=== PATIENT | female | born 1980 | race Hispanic/Latino ===

== ENCOUNTER 2021-12-17 14:16 | Emergency (ER) | payer OTHER, SELFPAY ==
--- NOTE | 2021-12-17 14:54 | ED.HA ---
HPI - Headache General Chief Complaint: Headache Stated Complaint: headache Time Seen by Provider: 12/17/21 14:29 History of Present Illness HPI Narrative: 41-year-old female presents to the emergency room for evaluation of a headache and sinus congestion. Patient states symptoms started yesterday. Took an Tylenol yesterday with no relief of symptoms. Patient states that her had similar symptoms a couple of days ago and are beginning to resolve. Patient denies fever, earache, sore throat, cough. Related Data Allergies Allergy/AdvReac Type Severity Reaction Status Date / Time No Known Allergies Allergy Verified 12/17/21 15:12 Review of Systems Review of Systems: CONSTITUTIONAL: Denies fever, chills, or sweats. EYES: Denies visual changes, redness, or discharge. ENT: Denies rhinorrhea, congestion, sore throat, or otalgia. CARDIOVASCULAR: Denies chest pain, palpitations, or edema. RESPIRATORY: Denies cough or dyspnea. GASTROINTESTINAL: Denies abdominal pain, nausea, vomiting, or diarrhea. GENITOURINARY: Denies dysuria or hematuria. SKIN: Denies rash or itching. MUSCULOSKELETAL: Denies back pain, joint pain, or myalgia. NEUROLOGIC: Reports headache PSYCHIATRIC: Denies anxiety or depression. Exam Narrative: GENERAL: Well-appearing, well-nourished, no physical limitations, and in no acute distress. HEAD: Normocephalic, atraumatic. EYES: Conjunctivae normal, PERRLA and EOMI. ENT: External nose normal, Nares clear, no rhinorrhea or epistaxis. Mucous membranes moist. Oropharynx without tonsillar hypertrophy exudate or other lesions. External ears normal, bilateral TMs normal bilaterally NECK: Supple. No adenopathy. CHEST: Clear to auscultation. No respiratory distress. No wheezes rales or rhonchi. No tenderness. HEART: Regular rate and rhythm. No murmur heard. Normal peripheral pulses. EXTREMITIES: Normal range of motion. No edema. No clubbing or cyanosis SKIN: Warm, dry, no rash. No noted wounds NEURO: No focal deficits. Alert and oriented x3. MAEW. CN's II-XI intact bilaterally, normal gait PSYCH: Cooperative. Normal mood and affect. Course Vital Signs Vital signs: Vital Signs Temperature 36.4 C 12/17/21 15:01 Pulse Rate 103 H 12/17/21 15:01 Respiratory Rate 16 12/17/21 15:01 Blood Pressure 121/87 12/17/21 15:01 Pulse Oximetry 99 12/17/21 15:01 Oxygen Delivery Room Air 12/17/21 15:01 Temperature 36.4 C 12/17/21 15:01 Pulse Rate 103 H 12/17/21 15:01 Respiratory Rate 16 12/17/21 15:01 Blood Pressure 121/87 12/17/21 15:01 Pulse Oximetry 99 12/17/21 15:01 Oxygen Delivery Room Air 12/17/21 15:01 MDM - Headache Lab Data Labs: Lab Results 12/17/21 Range/Units 14:59 SARS-CoV-2 RNA (RT-PCR) Negative Discharge Plan Discharge Clinical Impression: Headache, Acute viral syndrome Patient Disposition: Home, Self-Care Condition: Stable Instructions: Antibiotic Form, Acute Headache (ED), Viral Syndrome (ED) Additional Instructions: May take Tylenol and ibuprofen as needed for your headache. Follow-up with your primary care physician in the next 1 to 2 weeks. 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
[2021-12-17 15:01] VITALS: BP 121/87; PULSE 103; RESP 16; TEMP 36.4; O2SAT 99
[2021-12-17 15:59] LABS: SARS-CoV-2 RNA PCR Negative
== END 2021-12-17 16:36 | disposition home or self-care (01) ==
LOC: ANHED 16:27
PROVIDERS: Emergency Provider Nurse Practitioner Family
DX: R51.9 Headache, unspecified (principal); B34.9 Viral infection, unspecified; Z20.822 Contact with and (suspected) exposure to COVID-19
CPT/HCPCS: 99283; C9803; U0003; U0005

== ENCOUNTER 2024-05-25 10:17 | Emergency (ER) | payer OTHER, SELFPAY ==
--- NOTE | 2024-05-25 10:32 | ED_ITS ---
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 She reports has tried all and Pepto- Bismol. Denies any known fever. States that her kids were home sick with nausea and vomiting. Denies any chest pain, sore throat, shortness of breath, urinary symptoms. MD elicited complaint: sore throat and nasal congestion Related Data Allergies Allergy/AdvReac Type Severity Reaction Status Date / Time No Known Allergies Allergy Verified 05/25/24 10:47 Review of Systems Review of Systems: Pertinent positives per HPI. Patient denies any fever, chills, rash, visual changes, dizziness, cough, shortness of breath, chest pain, palpitations, constipation, abdominal pain, or any urinary issues. [facility] Comments At the time of my signature, I reviewed and agree with the nursing past medical, surgical, social, and family history. There is no relevant family history pertinent to the patient complaint. Exam Narrative: General: Well-developed, obese, in no apparent distress Head: Normocephalic, atraumatic Eyes: Pupils equally round and reactive to light bilaterally, EOM intact, sclera and conjunctive clear, no discharge, lids normal Ears: TMs intact and clear, ear canals clear, no drainage, grossly hearing normal. Nose: Nares patent, no discharge, no inflammation, no sinus tenderness. Mouth: Oral pharynx without lesions or masses, good dentition, MMM. Neck: Supple, trachea midline, no enlargement of anterior or posterior cervical nodes, no thyroid masses or goiter palpable. Cardio: Regular rate and rhythm, s1 and s2 normal, no murmur appreciated. Resp: Clear to auscultation bilaterally, no rhonchi, rales, wheezing or rubs Abdomen: Soft, pliable, bowel sounds present in all quadrants, generalized tender to palpation, no organomegly, no CVAT tenderness. Course Course Emergency Course: Portions of this record may have been created with voice recognition software. Level of Care: Express Care Visit Vital Signs Vital signs: Vital Signs Temperature 36.7 C 05/25/24 10:47 Pulse Rate 76 05/25/24 10:47 Respiratory Rate 16 05/25/24 10:47 Blood Pressure 107/73 05/25/24 10:47 Pulse Oximetry 100 05/25/24 10:47 Temperature 36.7 C 05/25/24 10:47 Pulse Rate 76 05/25/24 10:47 Respiratory Rate 16 05/25/24 10:47 Blood Pressure 107/73 05/25/24 10:47 Pulse Oximetry 100 05/25/24 10:47 Vital signs reviewed MDM - URI/Sore Throat MDM Narrative Medical decision making narrative: At the time of visit patient is resting comfortably on the exam table. Patient appears to be nontoxic. Labs: Influenza testing was negative in the clinic today. Plan: I suspect patient has viral syndrome/gastroenteritis. Prescription for Zofran and Levsin was sent to the pharmacy. Supportive measures were discussed with the patient and they voiced understanding discharge instructions and agrees to treatment plan. Return precautions reviewed Differential Diagnosis Differential diagnosis: Likely upper respiratory infection, otitis media, sinusitis, viral infection, bronchitis, influenza, pharyngitis and other (COVID) Discharge Plan Discharge Clinical Impression: Viral infection, Gastroenteritis Patient Disposition: Home, Self-Care Condition: Stable Instructions: Antibiotic Form, Gastroenteritis (ED), Viral Syndrome (ED) Additional Instructions: Las pruebas de influenza hoy dieron negativas en la cl?[place]. [place] los medicamentos recetados s?lo seg?n lo prescrito: ondansetr?n y levsin. Puede olegario Imodium seg?n sea necesario para las heces con diarrea siempre que no haya damaris en las heces. Aumente los l?quidos y mant?ngase fernando hidratado. Tylenol/motrin para el dolor/fiebre Dieta BRAT para la diarrea L?quidos micheal x 24 horas y luego avanzar seg?n la tolerancia para n?useas/v?mitos Vaya al servicio de urgencias si godinez afecci?n empeora: fiebre antonia que no se controla con Tylenol o Motrin, deshidrataci?n, debilidad, letargo, dificultad para respirar o dolor en el pecho. Tereza un seguimiento con godinez PCP en 3 a 5 d?as si los s?ntomas persisten. Patient Language: Citizen Of [place] Prescriptions: New ondansetron 4 mg tablet,disintegrating 4 mg PO Q6H PRN (Reason: nausea and vomiting) 3 Days Qty: 12 0RF hyoscyamine sulfate [Levsin] 0.125 mg tablet 0.125 mg PO QID PRN (Reason: dyspepsia) 3 Days Qty: 12 0RF Follow-up/Referrals: PHYSICIAN,QUICK MIXER OPERATOR [Primary Care Provider] - Stand Alone Forms: Work/School Release IP Time of Disposition: 11:11 Quality NIHSS Nursing Documentation ED NIHSS nursing documentation: reviewed/agree
[2024-05-25 10:47] VITALS: BP 107/73; PULSE 76; RESP 16; TEMP 36.7; O2SAT 100
[2024-05-25 11:08] LABS: EDINFLUASCREEN Negative (Negative); EDINFLUBSCREEN Negative (Negative)
== END 2024-05-25 11:13 | disposition home or self-care (01) ==
PROVIDERS: Emergency Provider Nurse Practitioner Family
DX: B34.9 Viral infection, unspecified (principal); K52.9 Noninfective gastroenteritis and colitis, unspecified
CPT/HCPCS: 87804; 99213; G0463